=== PATIENT | male | born 1970 | race Caucasian/White ===

== ENCOUNTER → 2024-06-24 | Outpatient (REF) | LOC: M PLAIMG 14:57 | PROVIDERS: ATTEND Internal Medicine | DX: M25.511 Pain in right shoulder (principal); M25.561 Pain in right knee ==

== ENCOUNTER 2024-09-02 13:44 | Emergency (ER) | payer OTHER, MEDICAID ==
[~2024-09-02] VITALS: Ht 170.2 cm; Wt 71.1 kg
[2024-09-02] MEDS ORDERED: FLUO-290 PO (16:45)
[2024-09-02] MEDS ORDERED: QUET1TAB17 PO (16:45)
[2024-09-02] MEDS ORDERED: AMLO10TA PO (16:45)
[2024-09-02] MEDS ORDERED: ASPI81TA26 PO (16:45)
[2024-09-02] MEDS ORDERED: ATOR1TAB21 PO (16:45)
[2024-09-02] MEDS ORDERED: BREAMIS10 MC (16:46)
[2024-09-02] MEDS ORDERED: VENTAER INH (16:46)
[2024-09-02 17:01] VITALS: BP 144/95; TEMP 97; O2SAT 98
== END 2024-09-02 17:15 | disposition home or self-care (01) ==
LOC: M ED 13:44
DX: Z76.0 Encounter for issue of repeat prescription (principal); I10 Essential (primary) hypertension